=== PATIENT | female | born 2000 | race Caucasian/White ===

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

== ENCOUNTER 2018-01-30 20:10 | Emergency (ER) | END 2018-01-30 23:17 | disposition left against medical advice (07) ==

== ENCOUNTER 2018-02-09 04:42 | Emergency (ER) | END 2018-02-09 08:15 | disposition home or self-care (01) ==